=== PATIENT | male | born 1960 | race Caucasian/White ===

== ENCOUNTER 2021-03-07 16:28 | Emergency (ER) | payer SELFPAY ==
[2021-03-07 17:18] LABS: HEMATOCRIT 29.5 % (39.0-50.0); HEMOGLOBIN 10.1 g/dl (14.0-18.0); IMMATURE GRANULOCYTES 0.3 % (0.0-5.0); MEAN CELL VOLUME 93.4 fL CALC (80.0-100.0); MEAN CORPUSCULAR HGB CONC 34.2 g/dL CAL (32.0-36.0); NEUT# 11.79 thou/uL (1.82-7.42); RED BLOOD COUNT 3.16 mill/uL (4.70-6.10); RED CELL DISTRI WIDTH 11.6 % (11.5-15.5)
[2021-03-07 17:33] LABS: ALBUMIN 3.1 g/dL (3.2-5.0); ALKALINE PHOSPHATASE 50 u/l (38-126); ANION GAP 8 (6-22 (CALC)); BILIRUBIN, TOTAL 0.6 mg/dL (0.0-1.4); BUN 17 mg/dL (9-20); BUN/CREATININE RATIO 24 (12-20 (CALC)); CARBON DIOXIDE 24 mmol/l (22-30); CHLORIDE 103 mmol/l (95-108); CREATININE 0.7 mg/dL (0.7-1.3); ETHYL ALCOHOL 0 mg/dl (0-30); GFR > 60 ML/MIN (>=60 (CALC)); GFR FOR AFR.AMER. > 60 ML/MIN (>=60 (CALC)); POTASSIUM 3.6 mmol/l (3.5-5.1); SGOT/AST 22 u/l (17-59); SODIUM 132 mmol/l (137-146); TOTAL PROTEIN 5.5 g/dL (6.3-8.2)
[2021-03-07 18:54] VITALS: BP 150/90
[2021-03-08] MEDS ORDERED: NORVASC5 M1 PO (07:58)
[2021-03-08] MEDS ORDERED: VISTARIL 50MG C50 M1 PO (08:02)
[2021-03-08] MEDS ORDERED: LITHIUM CARB300 MG PO (08:02)
[2021-03-08] MEDS ORDERED: CELEXA20 M1 PO (08:03)
[2021-03-08] MEDS ORDERED: DEPAKOTE500 MG PO (08:03)
[2021-03-08] MEDS ORDERED: AMLODIPINE BESY10 MG PO (08:04)
== END 2021-03-07 18:35 | disposition home or self-care (01) | DRG 103 ==
LOC: ED 16:28
PROVIDERS: Emergency Medicine
DX: R51.9 Headache, unspecified (principal); I10 Essential (primary) hypertension; F17.210 Nicotine dependence, cigarettes, uncomplicated; S06.5X9D Traumatic subdural hemorrhage with loss of consciousness of unspecified duration, subsequent encounter; S01.81XD Laceration without foreign body of other part of head, subsequent encounter; S22.42XD Multiple fractures of ribs, left side, subsequent encounter for fracture with routine healing; S02.2XXD Fracture of nasal bones, subsequent encounter for fracture with routine healing; V48.5XXD Car driver injured in noncollision transport accident in traffic accident, subsequent encounter

== ENCOUNTER 2021-03-07 21:23 | Emergency (ER) | payer OTHER ==
[2021-03-07 22:18] VITALS: BP 136/82
[2021-03-08] MEDS ORDERED: NORVASC5 M1 PO (07:58)
[2021-03-08] MEDS ORDERED: LITHIUM CARB300 MG PO (08:02)
[2021-03-08] MEDS ORDERED: VISTARIL 50MG C50 M1 PO (08:02)
[2021-03-08] MEDS ORDERED: DEPAKOTE500 MG PO (08:03)
[2021-03-08] MEDS ORDERED: CELEXA20 M1 PO (08:03)
[2021-03-08] MEDS ORDERED: AMLODIPINE BESY10 MG PO (08:04)
== END 2021-03-07 23:32 | disposition home or self-care (01) | DRG 103 ==
LOC: ED 21:23
DX: R51.9 Headache, unspecified (principal); S06.5X9D Traumatic subdural hemorrhage with loss of consciousness of unspecified duration, subsequent encounter; S22.42XD Multiple fractures of ribs, left side, subsequent encounter for fracture with routine healing; V89.2XXD Person injured in unspecified motor-vehicle accident, traffic, subsequent encounter; I10 Essential (primary) hypertension; F17.210 Nicotine dependence, cigarettes, uncomplicated

== ENCOUNTER 2021-03-08 06:36 | Emergency (ER) | payer OTHER ==
[2021-03-08] MEDS ORDERED: NORVASC5 M1 PO (07:58)
[2021-03-08] MEDS ORDERED: VISTARIL 50MG C50 M1 PO (08:02)
[2021-03-08] MEDS ORDERED: LITHIUM CARB300 MG PO (08:02)
[2021-03-08] MEDS ORDERED: CELEXA20 M1 PO (08:03)
[2021-03-08] MEDS ORDERED: DEPAKOTE500 MG PO (08:03)
[2021-03-08] MEDS ORDERED: AMLODIPINE BESY10 MG PO (08:04)
[2021-03-08 09:20] VITALS: BP 150/91
== END 2021-03-08 09:20 | disposition home or self-care (01) | DRG 641 ==
LOC: ED 06:36
DX: E51.9 Thiamine deficiency, unspecified (principal); R07.81 Pleurodynia; S01.81XD Laceration without foreign body of other part of head, subsequent encounter; S22.39XD Fracture of one rib, unspecified side, subsequent encounter for fracture with routine healing; I10 Essential (primary) hypertension; F31.9 Bipolar disorder, unspecified; F17.210 Nicotine dependence, cigarettes, uncomplicated; V89.2XXD Person injured in unspecified motor-vehicle accident, traffic, subsequent encounter; Z59.8 Other problems related to housing and economic circumstances

== ENCOUNTER 2021-03-08 13:56 | Observation (INO) | payer SELFPAY ==
[2021-03-08] VITALS (7 sets, daily range): BP systolic 94–132; BP diastolic 57–66
[~2021-03-08 13:56] MED LIST: AMLODIPINE BESY10 MG PO; CELEXA20 M1 PO; DEPAKOTE500 MG PO; LITHIUM CARB300 MG PO; NORVASC5 M1 PO; VISTARIL 50MG C50 M1 PO
[2021-03-08 17:29] LABS: HEMOGLOBIN 9.8 g/dl (14.0-18.0); IMMATURE GRANULOCYTES 0.3 % (0.0-5.0); MEAN CELL VOLUME 94.8 fL CALC (80.0-100.0); MEAN CORPUSCULAR HGB CONC 33.8 g/dL CAL (32.0-36.0); NEUT# 8.9 thou/uL (1.82-7.42); RED BLOOD COUNT 3.06 mill/uL (4.70-6.10); RED CELL DISTRI WIDTH 11.8 % (11.5-15.5)
[2021-03-08 17:46] LABS: ALBUMIN 3.5 g/dL (3.2-5.0); ALKALINE PHOSPHATASE 47 u/l (38-126); ANION GAP 11 (6-22 (CALC)); BILIRUBIN, TOTAL 0.4 mg/dL (0.0-1.4); BUN 13 mg/dL (9-20); BUN/CREATININE RATIO 15 (12-20 (CALC)); CARBON DIOXIDE 24 mmol/l (22-30); CHLORIDE 103 mmol/l (95-108); CREATININE 0.9 mg/dL (0.7-1.3); GFR > 60 ML/MIN (>=60 (CALC)); GFR FOR AFR.AMER. > 60 ML/MIN (>=60 (CALC)); POTASSIUM 3.6 mmol/l (3.5-5.1); SGOT/AST 22 u/l (17-59); SODIUM 134 mmol/l (137-146); TOTAL PROTEIN 6.2 g/dL (6.3-8.2)
[2021-03-09] VITALS: BP 124/66
[2021-03-09 04:00] VITALS: BP 143/73
[2021-03-09 05:47] LABS: HEMATOCRIT 28.8 % (39.0-50.0); HEMOGLOBIN 9.7 g/dl (14.0-18.0); MEAN CORPUSCULAR HGB CONC 33.7 g/dL CAL (32.0-36.0); RED BLOOD COUNT 3.03 mill/uL (4.70-6.10); RED CELL DISTRI WIDTH 11.8 % (11.5-15.5)
[2021-03-09 06:05] LABS: ANION GAP 8 (6-22 (CALC)); BUN 13 mg/dL (9-20); BUN/CREATININE RATIO 22 (12-20 (CALC)); CARBON DIOXIDE 25 mmol/l (22-30); CHLORIDE 106 mmol/l (95-108); CREATININE 0.6 mg/dL (0.7-1.3); GFR > 60 ML/MIN (>=60 (CALC)); GFR FOR AFR.AMER. > 60 ML/MIN (>=60 (CALC)); POTASSIUM 3.7 mmol/l (3.5-5.1); SODIUM 135 mmol/l (137-146)
[2021-03-09 10:00] VITALS: BP 124/75
[2021-03-09 12:11] LABS: URINE BLOOD DIPSTICK NEGATIVE (NEGATIVE); URINE CLARITY CLEAR; URINE COLOR YELLOW; URINE GLUCOSE - DIPSTICK NEGATIVE (NEGATIVE); URINE KETONE 15 mg/dL (NEGATIVE); URINE LEUK ESTERASE NEGATIVE (Negative); URINE NITRITE - DIPSTICK NEGATIVE (Negative); URINE PH 6.5 (4.5-8.0); URINE PROTEIN - DIPSTICK NEGATIVE (NEG-TRACE)
[2021-03-09 12:13] LABS: URINE BILIRUBIN - DIPSTICK NEGATIVE (NEGATIVE)
[2021-03-09 14:39] VITALS: BP 124/75
== END 2021-03-09 17:45 | disposition designated cancer center or children's hospital (05) | DRG 72 ==
LOC: ED 13:56 → ED-I 17:40 → ED 17:48 → ICU 17:49
PROVIDERS: Emergency Medicine; ADMIT Hospitalist; ATTEND Hospitalist
DX: G93.40 Encephalopathy, unspecified (principal); F11.159 Opioid abuse with opioid-induced psychotic disorder, unspecified; F13.159 Sedative, hypnotic or anxiolytic abuse with sedative, hypnotic or anxiolytic-induced psychotic disorder, unspecified; F12.159 Cannabis abuse with psychotic disorder, unspecified; I10 Essential (primary) hypertension; F31.9 Bipolar disorder, unspecified; F41.1 Generalized anxiety disorder; F10.20 Alcohol dependence, uncomplicated; F17.210 Nicotine dependence, cigarettes, uncomplicated; S06.5X9D Traumatic subdural hemorrhage with loss of consciousness of unspecified duration, subsequent encounter; S22.32XD Fracture of one rib, left side, subsequent encounter for fracture with routine healing; S01.81XD Laceration without foreign body of other part of head, subsequent encounter; Y90.6 Blood alcohol level of 120-199 mg/100 ml; V89.2XXD Person injured in unspecified motor-vehicle accident, traffic, subsequent encounter; Z20.822 Contact with and (suspected) exposure to COVID-19; R51.9 Headache, unspecified; R07.81 Pleurodynia; S22.39XD Fracture of one rib, unspecified side, subsequent encounter for fracture with routine healing; Z59.8 Other problems related to housing and economic circumstances

== ENCOUNTER 2021-04-01 20:50 | Emergency (ER) | payer SELFPAY ==
[~2021-04-01] VITALS: Ht 175.3 cm; Wt 81.8 kg
[2021-04-01 21:29] LABS: IMMATURE GRANULOCYTES 0.2 % (0.0-5.0); MEAN CELL VOLUME 93.9 fL CALC (80.0-100.0); MEAN CORPUSCULAR HGB 31.1 pG CALC (26.0-32.0); MEAN CORPUSCULAR HGB CONC 33.2 g/dL CAL (32.0-36.0); NEUT# 4.48 thou/uL (1.82-7.42); RED BLOOD COUNT 4.08 mill/uL (4.70-6.10); RED CELL DISTRI WIDTH 11.6 % (11.5-15.5)
[2021-04-01 21:30] LABS: HEMATOCRIT 38.3 % (39.0-50.0); HEMOGLOBIN 12.7 g/dl (14.0-18.0)
[2021-04-01 21:42] LABS: ALBUMIN 3.7 g/dL (3.2-5.0); ALKALINE PHOSPHATASE 42 u/l (38-126); BUN 17 mg/dL (9-20); BUN/CREATININE RATIO 14 (12-20 (CALC)); CARBON DIOXIDE 23 mmol/l (22-30); CHLORIDE 103 mmol/l (95-108); CREATININE 1.2 mg/dL (0.7-1.3); ETHYL ALCOHOL 128 mg/dl (0-30); GFR > 60 ML/MIN (>=60 (CALC)); GFR FOR AFR.AMER. > 60 ML/MIN (>=60 (CALC)); SGOT/AST 23 u/l (17-59); SODIUM 135 mmol/l (137-146); TOTAL PROTEIN 6.2 g/dL (6.3-8.2)
[2021-04-01 21:43] LABS: ANION GAP 14 (6-22 (CALC)); BILIRUBIN, TOTAL 0.6 mg/dL (0.0-1.4); POTASSIUM 4.6 mmol/l (3.5-5.1)
[2021-04-01 23:43] LABS: URINE BILIRUBIN - DIPSTICK NEGATIVE (NEGATIVE); URINE BLOOD DIPSTICK NEGATIVE (NEGATIVE); URINE COLOR YELLOW; URINE GLUCOSE - DIPSTICK NEGATIVE (NEGATIVE); URINE KETONE NEGATIVE (NEGATIVE); URINE LEUK ESTERASE NEGATIVE (NEGATIVE); URINE PH 5.5 (4.5-8.0); URINE PROTEIN - DIPSTICK NEGATIVE (NEG-TRACE); URINE SPECIFIC GRAVITY 1.015; URINE UROBILINOGEN - DIPSTICK 0.2 E.U./dL (0.2)
[2021-04-01 23:50] LABS: URINE NITRITE - DIPSTICK NEGATIVE (Negative)
[2021-04-02] MEDS ORDERED: TORADOL PO (00:28)
[2021-04-02 01:02] VITALS: BP 112/60
== END 2021-04-02 01:10 | disposition home or self-care (01) | DRG 103 ==
LOC: ED 20:50
PROVIDERS: Family Medicine
DX: F07.81 Postconcussional syndrome (principal); F10.129 Alcohol abuse with intoxication, unspecified; I10 Essential (primary) hypertension; F31.9 Bipolar disorder, unspecified; F17.200 Nicotine dependence, unspecified, uncomplicated

== ENCOUNTER 2021-04-02 08:09 | Emergency (ER) | payer SELFPAY ==
[~2021-04-02] VITALS: Ht 175.3 cm; Wt 81.8 kg
[~2021-04-02 08:09] MED LIST changes: +TORADOL PO
[2021-04-02 09:20] LABS: HEMATOCRIT 40.7 % (39.0-50.0); HEMOGLOBIN 13.4 g/dl (14.0-18.0); IMMATURE GRANULOCYTES 0.4 % (0.0-5.0); MEAN CORPUSCULAR HGB 30.9 pG CALC (26.0-32.0); MEAN CORPUSCULAR HGB CONC 32.9 g/dL CAL (32.0-36.0); NEUT# 7.47 thou/uL (1.82-7.42); RED BLOOD COUNT 4.33 mill/uL (4.70-6.10); RED CELL DISTRI WIDTH 11.7 % (11.5-15.5)
[2021-04-02 09:32] LABS: ETHYL ALCOHOL 0 mg/dl (0-30)
[2021-04-02 09:39] LABS: ALBUMIN 3.7 g/dL (3.2-5.0); ALKALINE PHOSPHATASE 46 u/l (38-126); ANION GAP 8 (6-22 (CALC)); BILIRUBIN, TOTAL 0.7 mg/dL (0.0-1.4); BUN 22 mg/dL (9-20); BUN/CREATININE RATIO 18 (12-20 (CALC)); CARBON DIOXIDE 27 mmol/l (22-30); CHLORIDE 107 mmol/l (95-108); CREATININE 1.2 mg/dL (0.7-1.3); GFR > 60 ML/MIN (>=60 (CALC)); GFR FOR AFR.AMER. > 60 ML/MIN (>=60 (CALC)); POTASSIUM 4.8 mmol/l (3.5-5.1); SGOT/AST 20 u/l (17-59); SODIUM 137 mmol/l (137-146); TOTAL PROTEIN 6.2 g/dL (6.3-8.2)
[2021-04-02 11:12] LABS: URINE BILIRUBIN - DIPSTICK NEGATIVE (NEGATIVE); URINE BLOOD DIPSTICK NEGATIVE (NEGATIVE); URINE COLOR YELLOW; URINE GLUCOSE - DIPSTICK NEGATIVE (NEGATIVE); URINE KETONE TRACE mg/dL (NEGATIVE); URINE LEUK ESTERASE NEGATIVE (NEGATIVE); URINE PROTEIN - DIPSTICK NEGATIVE (NEG-TRACE); URINE UROBILINOGEN - DIPSTICK 0.2 E.U./dL (0.2)
[2021-04-02 11:15] LABS: URINE NITRITE - DIPSTICK NEGATIVE (Negative)
[2021-04-02 16:20] VITALS: BP 127/69
== END 2021-04-02 16:20 | disposition designated cancer center or children's hospital (05) | DRG 880 ==
LOC: ED 08:09
PROVIDERS: Emergency Medicine
DX: R45.851 Suicidal ideations (principal); F31.9 Bipolar disorder, unspecified; I10 Essential (primary) hypertension; F17.200 Nicotine dependence, unspecified, uncomplicated; Z20.822 Contact with and (suspected) exposure to COVID-19